=== PATIENT | female | born 1945 | race African-American/Black ===

== ENCOUNTER 2023-07-06 13:50 | Inpatient (IN) | payer OTHER ==
[~2023-07-06] VITALS: Ht 162.6 cm; Wt 114.6 kg
[2023-07-06] MEDS ORDERED: PANTOPRAZOLE 40 MG/10 ML VIAL INJ IV ONE (14:15)
[2023-07-06] MEDS ORDERED: PANTOPRAZOLE 40mg/50ML NS AE 50 ML IV ONE (14:15)
[2023-07-06] MEDS ORDERED: ONDANSETRON HCL 4 MG/2 ML VIAL IV ONE (14:15)
[2023-07-06 14:17] LABS: Basophils # (auto) 0.1 10 ^3/uL (0-0.2); Eosinophils # (auto) 0 10 ^3/uL (0-0.8); Eosinophils % (auto) 0.1 % (0.0-7.0); Hematocrit 39.1 % (36.0-46.0); Hemoglobin 13.1 g/dL (12.2-16.2); Lymphocytes # (auto) 0.7 10 ^3/uL (0.4-5.4); Lymphocytes % (auto) 6.6 % (10.0-50.0); Mean Corpuscular Hemoglobin 32.3 pg (28.0-32.0); Mean Corpuscular Hgb Conc. 33.5 g/dL (32.0-36.0); Mean Corpuscular Volume 96.3 fL (80.0-100.0); Monocytes # (auto) 0.4 10 ^3/uL (0-1.3); Monocytes % (auto) 4.4 % (0.0-12.0); Neutrophils # (auto) 8.7 10 ^3/uL (1.6-8.6); Neutrophils % (auto) 87.9 % (37.0-80.0); Red Blood Cells 4.06 10^6/uL (4.0-5.20); Red Cell Distribution Width 13.7 % (11.8-14.3); White Blood Cell 9.9 10^3/uL (4.4-10.8)
[2023-07-06 14:34] LABS: INR 1.14 (0.9-1.15); Partial Thromboplastin Time 27.6 SEC (24.5-34.5); Prothrombin Time 11.9 sec (9.3-11.8)
[2023-07-06 14:49] LABS: Albumin 3.6 g/dL (3.4-5.0); Calcium 8.7 mg/dL (8.5-10.1); Potassium 3.4 mmol/L (3.5-5.1)
[2023-07-06] MEDS ORDERED: NITROGLYCERIN 2% OINT 1GM PKG TD ONE (15:30)
[2023-07-06] MEDS ORDERED: POTASSIUM CHL 20MEQ/100ML 100 ML IV ONE (16:45)
[2023-07-06] MEDS ORDERED: ONDANSETRON HCL 4 MG/2 ML VIAL IV PRN (17:00)
[2023-07-06] MEDS ORDERED: MORPHINE SULFATE INJ 2 MG/ml SYRG IV PRN (17:00)
[2023-07-06] MEDS: SODIUM CHLORIDE 0.9% 1,000 ML IV SCH (17:00)
[2023-07-06] MEDS ORDERED: NITROGLYCERIN 0.4 MG SL TAB SL PRN (17:00)
[2023-07-06] MEDS: CARVEDILOL 3.125 MG TAB PO SCH ×2 (17:27→22:00)
[2023-07-06] MEDS: PANTOPRAZOLE 40mg/50ML NS AE 50 ML IV SCH ×2 (18:20→22:20)
[2023-07-06 19:30] VITALS: PULSE 67; RESP 20; O2SAT 98
[2023-07-06] MEDS: MORPHINE SULFATE INJ 2 MG/ml SYRG IV PRN (21:56)
[2023-07-06] MEDS ORDERED: ATORVASTATIN 20 MG TAB PO SCH (22:00)
[2023-07-06 22:01] VITALS: PULSE 65; RESP 21; O2SAT 100
[2023-07-06 22:31] VITALS: BP 128/43; PULSE 62; PULSE 68; RESP 20; RESP 21; TEMP 97.7; O2SAT 99
[2023-07-06 23:44] LABS: Urine Bacteria FEW /hpf (None Seen); Urine Blood 1+ /uL (Negative); Urine Clarity HAZY (Clear); Urine Color Yellow (Yellow); Urine Mucus FEW (None Seen); Urine Protein, UAD TRACE (Negative); Urine Specific Gravity 1.014 (1.001-1.035); Urine Urobilinogen Normal (Negative); Urine WBC 40 /hpf (0 - 5); Urine WBC Clumps PRESENT /hpf (None Seen)
[2023-07-07] VITALS (14 sets, daily range): BP systolic 135–200; BP diastolic 45–73; PULSE 62–75; RESP 13–30; TEMP 97.5–98.9; O2SAT 96–100
[2023-07-07] MEDS: SODIUM CHLORIDE 0.9% 1,000 ML IV SCH (05:39)
[2023-07-07] MEDS: PANTOPRAZOLE 40mg/50ML NS AE 50 ML IV SCH ×3 (05:51→13:12)
[2023-07-07 06:45] LABS: Basophils # (auto) 0.1 10 ^3/uL (0-0.2); Basophils % (auto) 0.8 % (0.0-2.0); Eosinophils # (auto) 0.1 10 ^3/uL (0-0.8); Eosinophils % (auto) 0.7 % (0.0-7.0); Hematocrit 36.8 % (36.0-46.0); Hemoglobin 12.4 g/dL (12.2-16.2); Lymphocytes # (auto) 1.1 10 ^3/uL (0.4-5.4); Lymphocytes % (auto) 11.7 % (10.0-50.0); Mean Corpuscular Hemoglobin 32.5 pg (28.0-32.0); Mean Corpuscular Hgb Conc. 33.7 g/dL (32.0-36.0); Mean Corpuscular Volume 96.4 fL (80.0-100.0); Monocytes # (auto) 0.8 10 ^3/uL (0-1.3); Neutrophils # (auto) 7.6 10 ^3/uL (1.6-8.6); Neutrophils % (auto) 78.8 % (37.0-80.0); Nucleated Red Blood Cells % 0.1 %; Red Blood Cells 3.81 10^6/uL (4.0-5.20); Red Cell Distribution Width 13.6 % (11.8-14.3); White Blood Cell 9.7 10^3/uL (4.4-10.8)
[2023-07-07 06:56] LABS: Potassium 3.3 mmol/L (3.5-5.1)
[2023-07-07 07:03] LABS: Albumin 3.2 g/dL (3.4-5.0); BUN/Creatinine Ratio 18.2 (10.0-20.0); Calcium 8.5 mg/dL (8.5-10.1); Total Protein 7.8 g/dL (6.4-8.2)
[2023-07-07] MEDS: hydrALAZINE HCL 20 MG/ML VL IV PRN ×2 (07:48→17:20)
[2023-07-07] MEDS: CARVEDILOL 3.125 MG TAB PO SCH (07:49)
[2023-07-07] MEDS: MORPHINE SULFATE INJ 2 MG/ml SYRG IV PRN (07:49)
[2023-07-07] MEDS ORDERED: cefTRIAXone 1GM/50ML D5W 50 ML IV SCH (09:00)
[2023-07-07] MEDS ORDERED: amLODIPine BESYLATE 5 MG TAB PO ONE (11:15)
[2023-07-07] MEDS ORDERED: LOSARTAN POTASSIUM 25 MG TAB PO ONE (11:15)
[2023-07-07] MEDS ORDERED: POTASSIUM EFFERVESENT TAB 25 MEQ PO ONE (11:15)
[2023-07-07] MEDS ORDERED: cloNIDine HCL 0.1 MG TAB PO PRN (12:30)
[2023-07-07] MEDS ORDERED: LOSARTAN POTASSIUM 25 MG TAB PO SCH (22:00)
[2023-07-07] MEDS ORDERED: PANTOPRAZOLE 40 MG/10 ML VIAL INJ IV SCH (22:00)
[2023-07-08] MEDS ORDERED: amLODIPine BESYLATE 5 MG TAB PO SCH (10:00)
== END 2023-07-07 20:37 | disposition short-term general hospital (02) | DRG 64 ==
LOC: ER 13:50 → EDBD 13:50 → OVERFLOW 16:52 → DOU IN ICU 21:35
PROVIDERS: ADMIT Internal Medicine; ATTEND Internal Medicine
DX: I61.9 Nontraumatic intracerebral hemorrhage, unspecified (principal); I21.4 Non-ST elevation (NSTEMI) myocardial infarction; K92.0 Hematemesis; N39.0 Urinary tract infection, site not specified; Z68.41 Body mass index [BMI] 40.0-44.9, adult; I16.0 Hypertensive urgency; E66.01 Morbid (severe) obesity due to excess calories; I10 Essential (primary) hypertension; E87.6 Hypokalemia; R32 Unspecified urinary incontinence; Z96.653 Presence of artificial knee joint, bilateral; R79.89 Other specified abnormal findings of blood chemistry
CPT/HCPCS: 36415; 70450; 71045; 74176; 80053; 81001; 82140; 82962; 83690; 83735; 83880; 84484; 85025; 85610; 85730; 87040; 87081; 87086; 87088; 87186; 93005; 93306; 96365; 96375; 99291; C9113; G0378; J0696; J2405; J3480